=== PATIENT | female | born 1975 | race Two or more races ===

== ENCOUNTER 2022-09-15 18:53 | Emergency (ER) | payer OTHER, SELFPAY ==
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
[2022-09-15 19:52] VITALS: BP 112/52; PULSE 60; RESP 18; TEMP 36.8; O2SAT 99; BMI 40.7
== END 2022-09-15 20:30 | disposition home or self-care (01) ==
PROVIDERS: Emergency Provider Emergency Medicine
DX: S16.1XXA Strain of muscle, fascia and tendon at neck level, initial encounter (principal); S39.012A Strain of muscle, fascia and tendon of lower back, initial encounter; V43.52XA Car driver injured in collision with other type car in traffic accident, initial encounter; Y93.89 Activity, other specified; Y92.414 Local residential or business street as the place of occurrence of the external cause; Y99.9 Unspecified external cause status
CPT/HCPCS: 99282; 99283